=== PATIENT | male | born 1970 | race Caucasian/White ===

== ENCOUNTER 2021-06-30 11:58 | Emergency (ER) | payer OTHER ==
[~2021-06-30] VITALS: Ht 193 cm; Wt 112.7 kg
[2021-06-30] MEDS ORDERED: SIMVASTATIN PO (12:16)
[2021-06-30] MEDS ORDERED: XARELTO1 EACH PO (13:28)
[2021-06-30 13:37] VITALS: BP 131/64
== END 2021-06-30 13:40 | disposition home or self-care (01) ==
LOC: ER 11:58
DX: I82.431 Acute embolism and thrombosis of right popliteal vein (principal); I10 Essential (primary) hypertension; E11.9 Type 2 diabetes mellitus without complications; E78.5 Hyperlipidemia, unspecified; Z79.899 Other long term (current) drug therapy; Z88.0 Allergy status to penicillin